=== PATIENT | male | born 1965 | race Caucasian/White ===

== ENCOUNTER 2019-05-30 13:21 | Inpatient (IN) | payer OTHER ==
[2019-05-30 15:44] VITALS: BMI 32.8
--- NOTE | 2019-05-30 17:32 | HP ---
CIWA Score Nausea/Vomitin-No Nausea/No Vomiting Muscle Tremors: 4-Moderate,w/Arms Extend Anxiety: 1-Mildly Anxious Agitation: 0-Normal Activity Paroxysmal Sweats: 3 (Increased facial moisture) Orientation: 0-Oriented Tacttile Disturbances: 0-None Auditory Disturbances: 0-None Visual Disturbances: 0-None Headache: 2-Mild CIWA-Ar Total Score: 10 - Admission Criteria OASAS Guidelines: Admission for Medically Managed Detox: Requires at least one of the followin. CIWA greater than 12 2. Seizures within the past 24 hours 3. Delirium tremens within the past 24 hours 4. Hallucinations within the past 24 hours 5. Acute intervention needed for co occurring medical disorder 6. Acute intervention needed for co occurring psychiatric disorder 7. Severe withdrawal that cannot be handled at a lower level of care (continued vomiting, continued diarrhea, abnormal vital signs) requiring intravenous medication and/or fluids 8. Patient presents the following: Acute intervention needed for co-occurring med or psych disorder (Blood pressure: 161/102 WENDY: 0.08) Admission Criteria Met: Admission criteria met Admission ROS [facility] Chief Complaint: "Here to get detoxed and rehabed - goal to stop everything eventually" Allergies/Adverse Reactions: Allergies Allergy/AdvReac Type Severity Reaction Status Date / Time No Known Allergies Allergy Verified 05/30/19 15:34 History of Present Illness: This is the first [facility] presentation for this 53 yo who presents with alcohol withdrawal symptoms and elevated blood pressure seeking detox. Denies hx seizures, overdose or blackouts. WENDY: 0.08 UTox: = THC/JOHN/FEN/MOP/MTD Alcohol use began at age 19. Currently drinks 6- 16 oz cans/day x 2 1/2 months. States this is a decrease. States gets shaky and sweaty when doesn't drink. Cocaine use began at age 26. Uses nasally. Marijuana use began at age 22. Heroin use began at age [age]. Currently on VIP MMTP. States started VIP in December 2018 but was on another program from 2014. Current methadone dose is 65 mg PO Daily. States today was LDM. States started relapsing w/ opiates 3 months ago. Uses 2 bags daily nasally. Has a Narcan kit at home. Nicotine use began at age 26. Currently smokes 1 cig/day. Has a current prescription for clonazepam and zolpidem but states doesn't take that often. PMHx: Asthma (no exacerbation x 11 months); HTN - last took meds 3 days ago. Discussed importance of compliance w/ HTN meds. MHHx: Intermittent insomnia. Denies thoughts of harming self or others SHx: Domiciled. Unemployed ([employer]); Denies legal issues Patient Name: Robert Ortiz Date: 1965 Address: [address], [place] [address] Sex: Male Rx Written Rx Dispensed Drug Quantity Days Supply Prescriber Name 05/15/2019 05/15/2019 clonazepam 1 mg tablet 60 30 Ariadne Hurt (TECHNICAL SUPPORT ASSOCIATE) 05/15/2019 05/15/2019 zolpidem tartrate 10 mg tablet 30 30 Ariadne Hurt ( TECHNICAL SUPPORT ASSOCIATE) 04/14/2019 04/14/2019 clonazepam 1 mg tablet 90 30 Ariadne Hurt (TECHNICAL SUPPORT ASSOCIATE) 04/14/2019 04/14/2019 zolpidem tartrate 10 mg tablet 30 30 Ariadne Hurt ( TECHNICAL SUPPORT ASSOCIATE) 03/15/2019 03/15/2019 zolpidem tartrate 10 mg tablet 30 30 Ariadne Hurt ( TECHNICAL SUPPORT ASSOCIATE) 03/15/2019 03/15/2019 clonazepam 1 mg tablet 90 30 Ariadne Hurt (TECHNICAL SUPPORT ASSOCIATE) Patient Name: Robert Ortiz Date: 1965 Address: [address] [place] [address] Sex: Male Rx Written Rx Dispensed Drug Quantity Days Supply Prescriber Name 02/17/2019 02/17/2019 zolpidem tartrate 10 mg tablet 30 30 Ariadne Hurt ( TECHNICAL SUPPORT ASSOCIATE) 02/17/2019 02/17/2019 clonazepam 1 mg tablet 90 30 Ariadne Hurt (TECHNICAL SUPPORT ASSOCIATE) 01/16/2019 01/16/2019 zolpidem tartrate 10 mg tablet 30 30 Ariadne Hurt ( TECHNICAL SUPPORT ASSOCIATE) 01/16/2019 01/16/2019 clonazepam 1 mg tablet 90 30 Ariadne Hurt (TECHNICAL SUPPORT ASSOCIATE) 12/16/2018 12/16/2018 zolpidem tartrate 10 mg tablet 30 30 Ariadne Hurt ( TECHNICAL SUPPORT ASSOCIATE) 12/16/2018 12/16/2018 clonazepam 1 mg tablet 90 30 Ariadne Hurt (TECHNICAL SUPPORT ASSOCIATE) 11/16/2018 11/16/2018 zolpidem tartrate 10 mg tablet 30 30 Ariadne Hurt Lynette ( TECHNICAL SUPPORT ASSOCIATE) 11/16/2018 11/16/2018 clonazepam 1 mg tablet 90 30 Ariadne Hurt Lynette (TECHNICAL SUPPORT ASSOCIATE) 10/19/2018 10/19/2018 zolpidem tartrate 10 mg tablet 30 30 Donavon Rincon MD 10/19/2018 10/19/2018 clonazepam 1 mg tablet 90 30 Donavon Rincon MD 09/14/2018 09/16/2018 zolpidem tartrate 10 mg tablet 30 30 Ariadne Hurt Lynette ( TECHNICAL SUPPORT ASSOCIATE) 09/14/2018 09/16/2018 clonazepam 1 mg tablet 90 30 Blu Ariadne Lynette (TECHNICAL SUPPORT ASSOCIATE) 08/19/2018 08/19/2018 clonazepam 1 mg tablet 90 30 Blu Ariadne Lynette (TECHNICAL SUPPORT ASSOCIATE) 08/19/2018 08/19/2018 zolpidem tartrate 10 mg tablet 30 30 Blu Ariadne Lynette ( TECHNICAL SUPPORT ASSOCIATE) 07/20/2018 07/20/2018 clonazepam 1 mg tablet 90 30 Blu Ariadne Lynette (TECHNICAL SUPPORT ASSOCIATE) 07/20/2018 07/20/2018 zolpidem tartrate 10 mg tablet 30 30 Ariadne Hurt Lynette ( TECHNICAL SUPPORT ASSOCIATE) 06/17/2018 06/29/2018 clonazepam 1 mg tablet 90 30 Ariadne Hutr Lynette (TECHNICAL SUPPORT ASSOCIATE) 06/17/2018 06/29/2018 zolpidem tartrate 10 mg tablet 30 30 Blu Ariadne Lynette ( TECHNICAL SUPPORT ASSOCIATE) Exam Limitations: No Limitations - Ebola screening Have you traveled outside of the country in the last 21 days: No Have you had contact with anyone from an Ebola affected area: No Have you been sick,other than usual withdrawal symptoms: No Do you have a fever: No - Review of Systems Constitutional: Diaphoresis, Weight Stable EENT: reports: Blurred Vision Respiratory: reports: No Symptoms reported Cardiac: reports: No Symptoms Reported GI: reports: No Symptoms Reported : reports: No Symptoms Reported Musculoskeletal: reports: No Symptoms Reported Integumentary: reports: No Symptoms Reported Neuro: reports: Headache (Mild temporal) Endocrine: reports: Increased Thirst Hematology: reports: No Symptoms Reported Psychiatric: reports: Judgement Intact, Mood/Affect Appropiate, Orientated x3, Anxious Patient History - PPD History Previous Implant?: Yes Documented Results: Negative w/o proof Implanted On Prior [facility] Admission?: No PPD to be Administered?: Yes - Smoking Cessation Smoking history: Current every day smoker Have you smoked in the past 12 months: Yes Aproximately how many cigarettes per day: 1 Hx Chewing Tobacco Use: No Initiated information on smoking cessation: Yes 'Breaking Loose' booklet given: 05/30/19 - Substance & Tx. History Hx Alcohol Use: Yes Hx Substance Use: Yes Substance Use Type: Alcohol, Cocaine, Heroin, Marijuana, Opiates Hx Substance Use Treatment: Yes (detox, rehab, Currently on MMTP) - Substances abused Heroin Substance route: Inhalation Frequency: Daily Amount used: 2 days Age of first use: 24 Date of last use: 05/29/19 Alcohol Substance route: Oral Frequency: Daily Amount used: 6 pk or more Age of first use: 19 Date of last use: 05/30/19 Cocaine Substance route: Inhalation Frequency: 1-3 times last 30 days Amount used: 1/2 gram -1 gram Age of first use: 26 Date of last use: 05/29/19 Marijuana/Hashish Substance route: Smoking Frequency: Daily Amount used: 1/2 oz Age of first use: 22 Date of last use: 05/29/19 Admission Physical Exam [facility] - Vital Signs Vital Signs: Vital Signs - 24 hr 05/30/19 15:35 Temperature 97.9 F Pulse Rate 71 Respiratory 18 Rate Blood Pressure 161/102 H - Physical General Appearance: Yes: Nourished, Mild Distress, Tremorous (Mod tremors felt) , Sweating (Increased facial moisture), Anxious HEENTM: Yes: EOMI, Hearing grossly Normal, Normocephalic, Normal Voice, HEMAL ( Pupils = 3 mm), Pharynx Normal Respiratory: Yes: Lungs Clear (Pulse Ox = 97 %), Normal Breath Sounds, No Respiratory Distress Neck: Yes: No masses,lesions,Nodules, Supple Breast: Yes: Breast Exam Deferred Cardiology: Yes: Regular Rhythm, Regular Rate, S1, S2 Abdominal: Yes: Non Tender, Soft, Increased Bowel Sounds Genitourinary: Yes: Within Normal Limits Back: Yes: Normal Inspection Musculoskeletal: Yes: full range of Motion, Gait Steady Extremities: Yes: Normal Capillary Refill (Peripheral pulses +), Tremors Neurological: Yes: fare register repairer II-XII NML intact, Fully Oriented, Alert, Motor Strength 5/5, Normal Response Integumentary: Yes: Normal Color, Warm, Diaphoresis (Increased facial moisture) Lymphatic: Yes: Within Normal Limits - Diagnostic (1) Alcohol dependence with withdrawal, uncomplicated Current Visit: Yes Status: Acute (2) Cocaine dependence, uncomplicated Current Visit: Yes Status: Chronic (3) Cannabis dependence, uncomplicated Current Visit: Yes Status: Chronic (4) Nicotine abuse Current Visit: Yes Status: Chronic Comment: Down to one cigarette/day (5) History of asthma Current Visit: No Status: Chronic (6) Methadone maintenance therapy patient Current Visit: Yes Status: Chronic (7) Opioid use disorder Current Visit: Yes Status: Chronic Comment: Continues to use illicit opiates despite being on MMT (8) Essential (primary) hypertension Current Visit: Yes Status: Chronic Cleared for Admission S - Detox or Rehab [facility] Level of Care: Medically Managed Detox Regimen/Protocol: Valium Claeared for Rehab Admission: No Breathalyzer - Breathalyzer Breathalyzer: 0.08 Urine Drug Screen - Test Device Lot number: [id number] Expiration date: 01/24/21 - Control Is test valid?: Yes - Results Drug screen NEGATIVE: No Urine drug screen results: THC-Marijuana, JOHN-Cocaine, FEN-Fentanyl, MTD- Methadone Inpatient Rehab Admission - Rehab Decision to Admit Inpatient rehab admission?: No
[2019-05-30] MEDS ORDERED: ACETAMINOPHEN 325 MG TABLET (FP) PO PRN (17:56)
[2019-05-30] MEDS ORDERED: IBUPROFEN 400 MG TABLET (FP) PO PRN (17:56)
[2019-05-30] MEDS ORDERED: MAGNESIUM HYDROX 2400MG/30ML ORAL SUSPENSION 30 ML CUP PO PRN (17:56)
[2019-05-30] MEDS ORDERED: MAG HYDROX/AL HYDROX/SIMETH 30 ML UNIT-DOSE CUP PO PRN (17:56)
[2019-05-30] MEDS ORDERED: METHOCARBAMOL 500 MG TABLET PO PRN (17:56)
[2019-05-30] MEDS ORDERED: MENTHOL/PHENOL 1 EACH UD MM PRN (17:56)
[2019-05-30] MEDS ORDERED: BISMUTH SUBSALICYLATE 524 MG/30 ML UD PO PRN (17:56)
[2019-05-30] MEDS ORDERED: MAGNESIUM CITRATE 300 ML BOTTLE PO PRN (17:56)
[2019-05-30] MEDS ORDERED: diazePAM 5 MG TABLET PO ONE (18:15)
[2019-05-30] MEDS ORDERED: cloNIDine HCL 0.1 MG TABLET PO ONE (18:15)
[2019-05-30] MEDS: THIAMINE HCL 100 MG TABLET (FP) PO SCH (22:11)
[2019-05-30] MEDS: diazePAM 5 MG TABLET PO SCH (22:11)
[2019-05-30] MEDS: MELATONIN 5 MG TABLETS PO PRN (22:12)
[2019-05-31] MEDS ORDERED: METHADONE HCL 10 MG TABLET ONE (04:06)
[2019-05-31] MEDS ORDERED: METHADONE HCL 5 MG TABLET ONE (04:07)
[2019-05-31] MEDS ORDERED: METHADONE HCL 40 MG DISPERSABLE TABLET ONE (04:07)
[2019-05-31] MEDS: diazePAM 5 MG TABLET PO SCH ×3 (05:59→22:11)
[2019-05-31] MEDS: METHADONE 40 MG, METHADONE 20 MG, METHADONE 5 MG PO SCH (05:59)
[2019-05-31] MEDS ORDERED: METHADONE HCL 10 MG TABLET PO SCH (06:00)
[2019-05-31] MEDS: PRENATAL VITAMINS W/ FOLIC ACID TABLET (FP) PO SCH (10:08)
[2019-05-31] MEDS: LISINOPRIL 10 MG TABLET (FP) PO SCH (10:08)
[2019-05-31 10:35] LABS: HEMATOCRIT 38.8 % (35.4-49); HEMOGLOBIN 12.6 GM/dL (11.7-16.9); MCHC 32.5 g/dl (32.0-35.9); MEAN PLT VOLUME 9.9 fl (7.5-11.1); PLATELET COUNT 270 K/MM3 (134-434); RBC 4.68 M/mm3 (4.00-5.60); RDW 15.4 % (11.9-15.9); WHITE BLOOD COUNT 5.7 K/mm3 (4.0-10.0)
[2019-05-31 10:36] LABS: BILIRUBIN,TOTAL 0.3 mg/dL (0.2-1); BLOOD UREA NITROGEN 11.4 mg/dL (7-18); CREATININE 1.1 mg/dL (0.55-1.3); POTASSIUM 4.3 mmol/L (3.5-5.1); TOT PROT 7.4 g/dl (6.4-8.2)
--- NOTE | 2019-05-31 10:36 | EKG ---
Test Reason : Blood Pressure : / mmHG Vent. Rate : 071 BPM Atrial Rate : 071 BPM P-R Int : 158 ms QRS Dur : 098 ms QT Int : 398 ms P-R-T Axes : 057 -23 000 degrees QTc Int : 432 ms NORMAL SINUS RHYTHM NORMAL ECG NO PREVIOUS ECGS AVAILABLE Confirmed by BETSEY HENRIQUEZ, JEFF ([id number]) on 05/31/2019 10:36:16 AM Referred By: Confirmed By:JEFF LEGGETT MD
--- NOTE | 2019-05-31 10:54 | PN ---
S CIWA - CIWA Score Nausea/Vomitin-Mild Nausea/No Vomiting Muscle Tremors: 3 Anxiety: 4-Mod. Anxious/Guarded Agitation: 2 Paroxysmal Sweats: 2 Orientation: 0-Oriented Tacttile Disturbances: 0-None Auditory Disturbances: 0-None Visual Disturbances: 0-None Headache: 1-Very Mild CIWA-Ar Total Score: 13 S Progress Note (SOAP) Subjective: 53 years old male admitted on 05/30/19 for alcohol withdrawal sx management treated with valium detox regimen 14 years sobriety with depression taking methadone 65 mg po daily ambulating on hallway social with peers in day room discuss aftercare prefers in patient rehab Objective: 05/31/19 10:53 Vital Signs Temperature 98.1 F 05/31/19 09:18 Pulse Rate 78 05/31/19 09:18 Respiratory Rate 16 05/31/19 09:18 Blood Pressure 134/86 05/31/19 09:18 O2 Sat by Pulse Oximetry (%) Laboratory Last Values WBC 5.7 K/mm3 (4.0-10.0) 05/31/19 08:00 RBC 4.68 M/mm3 (4.00-5.60) 05/31/19 08:00 Hgb 12.6 GM/dL (11.7-16.9) 05/31/19 08:00 Hct 38.8 % (35.4-49) 05/31/19 08:00 MCV 83.0 fl (80-96) 05/31/19 08:00 MCH 27.0 pg (25.7-33.7) 05/31/19 08:00 MCHC 32.5 g/dl (32.0-35.9) 05/31/19 08:00 RDW 15.4 % (11.9-15.9) 05/31/19 08:00 Plt Count 270 K/MM3 (134-434) 05/31/19 08:00 MPV 9.9 fl (7.5-11.1) 05/31/19 08:00 Sodium 137 mmol/L (136-145) 05/31/19 08:00 Potassium 4.3 mmol/L (3.5-5.1) 05/31/19 08:00 Chloride 102 mmol/L (98-107) 05/31/19 08:00 Carbon Dioxide 30 mmol/L (21-32) 05/31/19 08:00 Anion Gap 5 MMOL/L (8-16) L 05/31/19 08:00 BUN 11.4 mg/dL (7-18) 05/31/19 08:00 Creatinine 1.1 mg/dL (0.55-1.3) 05/31/19 08:00 Est GFR (CKD-EPI)AfAm 88.36 05/31/19 08:00 Est GFR (CKD-EPI)NonAf 76.24 05/31/19 08:00 Random Glucose 72 mg/dL (74-106) L 05/31/19 08:00 Calcium 9.0 mg/dL (8.5-10.1) 05/31/19 08:00 Total Bilirubin 0.3 mg/dL (0.2-1) 05/31/19 08:00 AST 11 U/L (15-37) L 05/31/19 08:00 ALT 15 U/L (13-61) 05/31/19 08:00 Alkaline Phosphatase 103 U/L (45-117) 05/31/19 08:00 Total Protein 7.4 g/dl (6.4-8.2) 05/31/19 08:00 Albumin 4.0 g/dl (3.4-5.0) 05/31/19 08:00 lab noted Assessment: 05/31/19 10:54 alcohol withdrawal sx Plan: continue valium detox regimen
[2019-05-31] MEDS: THIAMINE HCL 100 MG TABLET (FP) PO SCH (22:11)
[2019-05-31] MEDS: MELATONIN 5 MG TABLETS PO PRN (22:11)
[2019-06-01] MEDS ORDERED: METHADONE HCL 10 MG TABLET ONE (04:27)
[2019-06-01] MEDS ORDERED: METHADONE HCL 40 MG DISPERSABLE TABLET ONE (04:28)
[2019-06-01] MEDS ORDERED: METHADONE HCL 5 MG TABLET ONE (04:28)
[2019-06-01] MEDS: diazePAM 5 MG TABLET PO SCH ×2 (05:29→17:02)
[2019-06-01] MEDS: METHADONE 40 MG, METHADONE 20 MG, METHADONE 5 MG PO SCH (05:29)
[2019-06-01] MEDS: PRENATAL VITAMINS W/ FOLIC ACID TABLET (FP) PO SCH (10:23)
[2019-06-01] MEDS: LISINOPRIL 10 MG TABLET (FP) PO SCH (10:23)
[2019-06-01] MEDS: diazePAM 5 MG TABLET PO PRN ×2 (10:25→21:48)
--- NOTE | 2019-06-01 12:08 | PN ---
[facility] CIWA - CIWA Score Nausea/Vomitin-No Nausea/No Vomiting Muscle Tremors: 2 Anxiety: 3 Agitation: 2 Paroxysmal Sweats: 1-Minimal Palms Moist Orientation: 0-Oriented Tacttile Disturbances: 0-None Auditory Disturbances: 0-None Visual Disturbances: 0-None Headache: 0-None Present CIWA-Ar Total Score: 8 S Progress Note (SOAP) Subjective: 53 years old male admitted on 05/30/19 for alcohol withdrawal sx management treated with valium detox regimen feeling better today ambulating on hallway discuss aftercare with staff Objective: 06/01/19 12:08 Vital Signs Temperature 98.1 F 06/01/19 09:15 Pulse Rate 74 06/01/19 09:15 Respiratory Rate 18 06/01/19 09:15 Blood Pressure 119/82 06/01/19 09:15 O2 Sat by Pulse Oximetry (%) Laboratory Last Values WBC 5.7 K/mm3 (4.0-10.0) 05/31/19 08:00 RBC 4.68 M/mm3 (4.00-5.60) 05/31/19 08:00 Hgb 12.6 GM/dL (11.7-16.9) 05/31/19 08:00 Hct 38.8 % (35.4-49) 05/31/19 08:00 MCV 83.0 fl (80-96) 05/31/19 08:00 MCH 27.0 pg (25.7-33.7) 05/31/19 08:00 MCHC 32.5 g/dl (32.0-35.9) 05/31/19 08:00 RDW 15.4 % (11.9-15.9) 05/31/19 08:00 Plt Count 270 K/MM3 (134-434) 05/31/19 08:00 MPV 9.9 fl (7.5-11.1) 05/31/19 08:00 Sodium 137 mmol/L (136-145) 05/31/19 08:00 Potassium 4.3 mmol/L (3.5-5.1) 05/31/19 08:00 Chloride 102 mmol/L (98-107) 05/31/19 08:00 Carbon Dioxide 30 mmol/L (21-32) 05/31/19 08:00 Anion Gap 5 MMOL/L (8-16) L 05/31/19 08:00 BUN 11.4 mg/dL (7-18) 05/31/19 08:00 Creatinine 1.1 mg/dL (0.55-1.3) 05/31/19 08:00 Est GFR (CKD-EPI)AfAm 88.36 05/31/19 08:00 Est GFR (CKD-EPI)NonAf 76.24 05/31/19 08:00 Random Glucose 72 mg/dL (74-106) L 05/31/19 08:00 Calcium 9.0 mg/dL (8.5-10.1) 05/31/19 08:00 Total Bilirubin 0.3 mg/dL (0.2-1) 05/31/19 08:00 AST 11 U/L (15-37) L 05/31/19 08:00 ALT 15 U/L (13-61) 05/31/19 08:00 Alkaline Phosphatase 103 U/L (45-117) 05/31/19 08:00 Total Protein 7.4 g/dl (6.4-8.2) 05/31/19 08:00 Albumin 4.0 g/dl (3.4-5.0) 05/31/19 08:00 RPR Titer Nonreactive (NONREACTIVE) 05/31/19 08:00 lab noted Assessment: 06/01/19 12:08 alcohol withdrawal sx Plan: valium detox regimen
[2019-06-01] MEDS: THIAMINE HCL 100 MG TABLET (FP) PO SCH (21:46)
[2019-06-01] MEDS: MELATONIN 5 MG TABLETS PO PRN (21:48)
[2019-06-02] MEDS ORDERED: METHADONE HCL 40 MG DISPERSABLE TABLET ONE (04:13)
[2019-06-02] MEDS ORDERED: METHADONE HCL 10 MG TABLET ONE (04:13)
[2019-06-02] MEDS ORDERED: METHADONE HCL 5 MG TABLET ONE (04:14)
[2019-06-02] MEDS: METHADONE 40 MG, METHADONE 20 MG, METHADONE 5 MG PO SCH (05:46)
[2019-06-02] MEDS ORDERED: diazePAM 5 MG TABLET PO ONE (06:00)
--- NOTE | 2019-06-02 09:43 | PN ---
S CIWA - CIWA Score Nausea/Vomitin-No Nausea/No Vomiting Muscle Tremors: None Anxiety: 3 Agitation: 2 Paroxysmal Sweats: No Perspiration Orientation: 0-Oriented Tacttile Disturbances: 1-Very Mild Itch/Numbness Auditory Disturbances: 0-None Visual Disturbances: 0-None Headache: 0-None Present CIWA-Ar Total Score: 6 [facility] Progress Note (SOAP) Subjective: c/o of feeling anxious and interrupted sleep Objective: 06/02/19 16:59 Vital Signs Temperature 98.1 F 06/02/19 13:25 Pulse Rate 71 06/02/19 13:25 Respiratory Rate 18 06/02/19 13:25 Blood Pressure 130/88 06/02/19 13:25 O2 Sat by Pulse Oximetry (%) Laboratory Last Values WBC 5.7 K/mm3 (4.0-10.0) 05/31/19 08:00 RBC 4.68 M/mm3 (4.00-5.60) 05/31/19 08:00 Hgb 12.6 GM/dL (11.7-16.9) 05/31/19 08:00 Hct 38.8 % (35.4-49) 05/31/19 08:00 MCV 83.0 fl (80-96) 05/31/19 08:00 MCH 27.0 pg (25.7-33.7) 05/31/19 08:00 MCHC 32.5 g/dl (32.0-35.9) 05/31/19 08:00 RDW 15.4 % (11.9-15.9) 05/31/19 08:00 Plt Count 270 K/MM3 (134-434) 05/31/19 08:00 MPV 9.9 fl (7.5-11.1) 05/31/19 08:00 Sodium 137 mmol/L (136-145) 05/31/19 08:00 Potassium 4.3 mmol/L (3.5-5.1) 05/31/19 08:00 Chloride 102 mmol/L (98-107) 05/31/19 08:00 Carbon Dioxide 30 mmol/L (21-32) 05/31/19 08:00 Anion Gap 5 MMOL/L (8-16) L 05/31/19 08:00 BUN 11.4 mg/dL (7-18) 05/31/19 08:00 Creatinine 1.1 mg/dL (0.55-1.3) 05/31/19 08:00 Est GFR (CKD-EPI)AfAm 88.36 05/31/19 08:00 Est GFR (CKD-EPI)NonAf 76.24 05/31/19 08:00 Random Glucose 72 mg/dL (74-106) L 05/31/19 08:00 Calcium 9.0 mg/dL (8.5-10.1) 05/31/19 08:00 Total Bilirubin 0.3 mg/dL (0.2-1) 05/31/19 08:00 AST 11 U/L (15-37) L 05/31/19 08:00 ALT 15 U/L (13-61) 05/31/19 08:00 Alkaline Phosphatase 103 U/L (45-117) 05/31/19 08:00 Total Protein 7.4 g/dl (6.4-8.2) 05/31/19 08:00 Albumin 4.0 g/dl (3.4-5.0) 05/31/19 08:00 RPR Titer Nonreactive (NONREACTIVE) 05/31/19 08:00 Assessment: 06/02/19 16:59 Patient Aox3 anxious full ROM no gait disturbance withdrawal sx increase po fluids continue detox d/c in AM
[2019-06-02] MEDS: LISINOPRIL 10 MG TABLET (FP) PO SCH (10:50)
[2019-06-02] MEDS: PRENATAL VITAMINS W/ FOLIC ACID TABLET (FP) PO SCH (10:50)
[2019-06-02] MEDS: diazePAM 5 MG TABLET PO PRN ×2 (10:53→17:22)
[2019-06-02] MEDS: HYDROCORTISONE 2.5% TOPICAL CREAM 30 GM TUBE PR SCH (14:19)
[2019-06-02] MEDS: MELATONIN 5 MG TABLETS PO PRN (22:03)
[2019-06-02] MEDS: THIAMINE HCL 100 MG TABLET (FP) PO SCH (22:03)
[2019-06-03] MEDS ORDERED: METHADONE HCL 10 MG TABLET ONE (06:17)
[2019-06-03] MEDS ORDERED: METHADONE HCL 40 MG DISPERSABLE TABLET ONE (06:18)
[2019-06-03] MEDS ORDERED: METHADONE HCL 5 MG TABLET ONE (06:18)
[2019-06-03] MEDS: METHADONE 40 MG, METHADONE 20 MG, METHADONE 5 MG PO SCH (06:20)
[2019-06-03] MEDS ORDERED: HYDROCHLOROTHIAZIDE 12.5 MG CAPSULE (FP) PO ONE ×2 (10:00→23:00)
[2019-06-03] MEDS: LISINOPRIL 10 MG TABLET (FP) PO SCH (10:12)
[2019-06-03] MEDS: PRENATAL VITAMINS W/ FOLIC ACID TABLET (FP) PO SCH (10:13)
[2019-06-03] MEDS: HYDROCORTISONE 2.5% TOPICAL CREAM 30 GM TUBE PR SCH (11:28)
--- NOTE | 2019-06-03 13:47 | PN ---
[facility] Progress Note Note: Pt completed his detox protocol on 06/02/2019 in AM. Pt is accepted to [facility] on 06/05/2019. [facility] does not accept pt's on weekend. Will keep pt till wednesday for relapse prevention. Case discussed with Omaira Cabrales, Clinical suppervisor. Pt is alert and oriented x3 and in no respiratory distress.
[2019-06-03] MEDS: hydrOXYzine PAMOATE 25 MG CAPSULE (FP) PO PRN ×2 (18:09→22:18)
[2019-06-03] MEDS: NICOTINE POLACRILEX 2 MG GUM BUC PRN (18:11)
[2019-06-03] MEDS: ACETAMINOPHEN 325 MG TABLET (FP) PO PRN (18:56)
--- NOTE | 2019-06-03 22:15 | PN ---
[facility] Progress Note Note: c/o feet swelling x 2 days. States swelling decreases when legs are elevated. Denies CP/SOB/calf pain.. BLE 1+ pitting edema noted (L) > (R). Pedal pulses(+); Cap refill < 3 sec. No increased warmth/tenderness of calf/Neg Wlai's. Lungs CTA. Pulse Ox = 98% Chronic increased abdominal adiposity. 05/30/19: EKG reviewed. CMP Sodium 137 mmol/L (136-145) 05/31/19 08:00 Potassium 4.3 mmol/L (3.5-5.1) 05/31/19 08:00 Chloride 102 mmol/L (98-107) 05/31/19 08:00 Carbon Dioxide 30 mmol/L (21-32) 05/31/19 08:00 Anion Gap 5 MMOL/L (8-16) L 05/31/19 08:00 BUN 11.4 mg/dL (7-18) 05/31/19 08:00 Creatinine 1.1 mg/dL (0.55-1.3) 05/31/19 08:00 Est GFR (CKD-EPI)AfAm 88.36 05/31/19 08:00 Est GFR (CKD-EPI)NonAf 76.24 05/31/19 08:00 Random Glucose 72 mg/dL (74-106) L 05/31/19 08:00 Calcium 9.0 mg/dL (8.5-10.1) 05/31/19 08:00 Total Bilirubin 0.3 mg/dL (0.2-1) 05/31/19 08:00 AST 11 U/L (15-37) L 05/31/19 08:00 ALT 15 U/L (13-61) 05/31/19 08:00 Alkaline Phosphatase 103 U/L (45-117) 05/31/19 08:00 Total Protein 7.4 g/dl (6.4-8.2) 05/31/19 08:00 Albumin 4.0 g/dl (3.4-5.0) 05/31/19 08:00 Labs reviewed. Vital Signs 06/03/19 06/03/19 06/03/19 14:00 17:48 21:48 Temperature 98.1 F 99.2 F 98.2 F Pulse Rate 76 74 82 Respiratory 20 18 18 Rate Blood Pressure 126/88 131/92 144/95 06/04/19 00:30 Temperature Pulse Rate Respiratory 18 Rate Blood Pressure Plan: 12.5 mg HCTZ BID x 2 doses. Discussed low Na foods and encouraged compliance Encouraged elevation of feet.
[2019-06-03] MEDS: THIAMINE HCL 100 MG TABLET (FP) PO SCH (22:17)
[2019-06-03] MEDS: MELATONIN 5 MG TABLETS PO PRN (22:17)
[2019-06-04] MEDS ORDERED: METHADONE HCL 40 MG DISPERSABLE TABLET ONE (04:34)
[2019-06-04] MEDS ORDERED: METHADONE HCL 10 MG TABLET ONE (04:34)
[2019-06-04] MEDS ORDERED: METHADONE HCL 5 MG TABLET ONE (04:35)
[2019-06-04] MEDS: METHADONE 40 MG, METHADONE 20 MG, METHADONE 5 MG PO SCH (05:23)
[2019-06-04] MEDS ORDERED: HYDROCHLOROTHIAZIDE 12.5 MG CAPSULE (FP) PO ONE (10:00)
[2019-06-04] MEDS: LISINOPRIL 10 MG TABLET (FP) PO SCH (10:08)
[2019-06-04] MEDS: HYDROCORTISONE 2.5% TOPICAL CREAM 30 GM TUBE PR SCH (10:08)
[2019-06-04] MEDS: PRENATAL VITAMINS W/ FOLIC ACID TABLET (FP) PO SCH (10:08)
[2019-06-04] MEDS: NICOTINE POLACRILEX 2 MG GUM BUC PRN (11:08)
--- NOTE | 2019-06-04 13:28 | PN ---
[facility] CIWA - CIWA Score Nausea/Vomitin-No Nausea/No Vomiting Muscle Tremors: 1-None Visible, but [place] Anxiety: 1-Mildly Anxious Agitation: 0-Normal Activity Paroxysmal Sweats: No Perspiration Orientation: 0-Oriented Tacttile Disturbances: 0-None Auditory Disturbances: 0-None Visual Disturbances: 0-None Headache: 0-None Present CIWA-Ar Total Score: 2 S Progress Note (SOAP) Subjective: 54 years old male admitted on 05/30/19 for alcohol withdrawal sx management treated with valium detox regimen edematous of both ankles hyperpigmentation noted on both legs above the ankle strong recommend the patient elevating both legs as long as possible discuss alcohol related vascular disease Objective: 06/04/19 13:27 Vital Signs Temperature 97.3 F L 06/04/19 13:08 Pulse Rate 80 06/04/19 13:08 Respiratory Rate 18 06/04/19 13:08 Blood Pressure 109/74 06/04/19 13:08 O2 Sat by Pulse Oximetry (%) Laboratory Last Values WBC 5.7 K/mm3 (4.0-10.0) 05/31/19 08:00 RBC 4.68 M/mm3 (4.00-5.60) 05/31/19 08:00 Hgb 12.6 GM/dL (11.7-16.9) 05/31/19 08:00 Hct 38.8 % (35.4-49) 05/31/19 08:00 MCV 83.0 fl (80-96) 05/31/19 08:00 MCH 27.0 pg (25.7-33.7) 05/31/19 08:00 MCHC 32.5 g/dl (32.0-35.9) 05/31/19 08:00 RDW 15.4 % (11.9-15.9) 05/31/19 08:00 Plt Count 270 K/MM3 (134-434) 05/31/19 08:00 MPV 9.9 fl (7.5-11.1) 05/31/19 08:00 Sodium 137 mmol/L (136-145) 05/31/19 08:00 Potassium 4.3 mmol/L (3.5-5.1) 05/31/19 08:00 Chloride 102 mmol/L (98-107) 05/31/19 08:00 Carbon Dioxide 30 mmol/L (21-32) 05/31/19 08:00 Anion Gap 5 MMOL/L (8-16) L 05/31/19 08:00 BUN 11.4 mg/dL (7-18) 05/31/19 08:00 Creatinine 1.1 mg/dL (0.55-1.3) 05/31/19 08:00 Est GFR (CKD-EPI)AfAm 88.36 05/31/19 08:00 Est GFR (CKD-EPI)NonAf 76.24 05/31/19 08:00 Random Glucose 72 mg/dL (74-106) L 05/31/19 08:00 Calcium 9.0 mg/dL (8.5-10.1) 05/31/19 08:00 Total Bilirubin 0.3 mg/dL (0.2-1) 05/31/19 08:00 AST 11 U/L (15-37) L 05/31/19 08:00 ALT 15 U/L (13-61) 05/31/19 08:00 Alkaline Phosphatase 103 U/L (45-117) 05/31/19 08:00 Total Protein 7.4 g/dl (6.4-8.2) 05/31/19 08:00 Albumin 4.0 g/dl (3.4-5.0) 05/31/19 08:00 RPR Titer Nonreactive (NONREACTIVE) 05/31/19 08:00 lab noted Assessment: 06/04/19 13:28 alcohol withdrawal sx Plan: medically observation
[2019-06-04] MEDS: ACETAMINOPHEN 325 MG TABLET (FP) PO PRN (22:21)
[2019-06-04] MEDS: MELATONIN 5 MG TABLETS PO PRN (22:21)
[2019-06-04] MEDS: THIAMINE HCL 100 MG TABLET (FP) PO SCH (22:21)
[2019-06-05] MEDS ORDERED: METHADONE HCL 40 MG DISPERSABLE TABLET ONE (04:25)
[2019-06-05] MEDS ORDERED: METHADONE HCL 5 MG TABLET ONE (04:25)
[2019-06-05] MEDS ORDERED: METHADONE HCL 10 MG TABLET ONE (04:25)
[2019-06-05] MEDS: METHADONE 40 MG, METHADONE 20 MG, METHADONE 5 MG PO SCH (05:37)
[2019-06-05] MEDS: ACETAMINOPHEN 325 MG TABLET (FP) PO PRN (06:09)
[2019-06-05 09:18] VITALS: BP 121/82; PULSE 92; TEMP 97.6
--- NOTE | 2019-06-05 13:04 | DS ---
[facility] Detox Discharge Summary Admission Date: 05/30/19 Discharge Date: 06/05/19 - History Present History: Alcohol Dependence Additional Comments: 54 years old male admitted on 05/30/19 for alcohol withdrawal sx management treated with valium detox regimen patient tolerated well alert oriented x 2 extremities full range of motion ambulating steady gait denies pain while ambulating on the floor cardiac s1s2 regular rate rhythm respiratory clear lung bilaterally on auscultation Pertinent Past History: patient agrees returning to methadone program for ankles edema and bringing in lab report for follow up patient is willing to go to [facility] follow up - Physical Exam Results Vital Signs: Vital Signs Temperature 97.6 F 06/05/19 09:17 Pulse Rate 92 H 06/05/19 09:17 Respiratory Rate 18 06/05/19 09:17 Blood Pressure 121/82 06/05/19 09:17 O2 Sat by Pulse Oximetry (%) Pertinent Admission Physical Exam Findings: alcohol withdrawal sx Laboratory Last Values WBC 5.7 K/mm3 (4.0-10.0) 05/31/19 08:00 RBC 4.68 M/mm3 (4.00-5.60) 05/31/19 08:00 Hgb 12.6 GM/dL (11.7-16.9) 05/31/19 08:00 Hct 38.8 % (35.4-49) 05/31/19 08:00 MCV 83.0 fl (80-96) 05/31/19 08:00 MCH 27.0 pg (25.7-33.7) 05/31/19 08:00 MCHC 32.5 g/dl (32.0-35.9) 05/31/19 08:00 RDW 15.4 % (11.9-15.9) 05/31/19 08:00 Plt Count 270 K/MM3 (134-434) 05/31/19 08:00 MPV 9.9 fl (7.5-11.1) 05/31/19 08:00 Sodium 137 mmol/L (136-145) 05/31/19 08:00 Potassium 4.3 mmol/L (3.5-5.1) 05/31/19 08:00 Chloride 102 mmol/L (98-107) 05/31/19 08:00 Carbon Dioxide 30 mmol/L (21-32) 05/31/19 08:00 Anion Gap 5 MMOL/L (8-16) L 05/31/19 08:00 BUN 11.4 mg/dL (7-18) 05/31/19 08:00 Creatinine 1.1 mg/dL (0.55-1.3) 05/31/19 08:00 Est GFR (CKD-EPI)AfAm 88.36 05/31/19 08:00 Est GFR (CKD-EPI)NonAf 76.24 05/31/19 08:00 Random Glucose 72 mg/dL (74-106) L 05/31/19 08:00 Calcium 9.0 mg/dL (8.5-10.1) 05/31/19 08:00 Total Bilirubin 0.3 mg/dL (0.2-1) 05/31/19 08:00 AST 11 U/L (15-37) L 05/31/19 08:00 ALT 15 U/L (13-61) 05/31/19 08:00 Alkaline Phosphatase 103 U/L (45-117) 05/31/19 08:00 Total Protein 7.4 g/dl (6.4-8.2) 05/31/19 08:00 Albumin 4.0 g/dl (3.4-5.0) 05/31/19 08:00 RPR Titer Nonreactive (NONREACTIVE) 05/31/19 08:00 lab noted - Treatment Hospital Course: Detox Protocol Followed, Detoxed Safely, Responded well, Discharged Condition Good, Rehab Referral Accepted Patient has Accepted a Rehab Referral to: [facility] - Medication Discharge Medications: Ambulatory Orders Lisinopril [Prinivil] 10 mg PO DAILY 05/30/19 - Diagnosis (1) Edema of both ankles Status: Chronic (2) Alcohol dependence with withdrawal, uncomplicated Status: Acute (3) Essential (primary) hypertension Status: Chronic (4) Methadone maintenance therapy patient Status: Chronic (5) Nicotine abuse Status: Acute - AMA Did Patient Leave Against Medical Advice: No CIWA Score - CIWA Score Nausea/Vomitin-No Nausea/No Vomiting Muscle Tremors: 1-None Visible, but [place] Anxiety: 0-No Anxiety, at Ease Agitation: 0-Normal Activity Paroxysmal Sweats: No Perspiration Orientation: 0-Oriented Tacttile Disturbances: 0-None Auditory Disturbances: 0-None Visual Disturbances: 0-None Headache: 0-None Present CIWA-Ar Total Score: 1
== END 2019-06-05 08:39 | disposition home or self-care (01) | DRG 897 ==
LOC: YASAS 13:21 → Y3N 18:02
PROVIDERS: ADMIT Allergy & Immunology; ATTEND Allergy & Immunology
PROC: HZ2ZZZZ Detoxification Services for Substance Abuse Treatment (ICD-10-PCS; principal; 2019-05-30)
DX: F10.230 Alcohol dependence with withdrawal, uncomplicated (principal); F11.20 Opioid dependence, uncomplicated; F14.20 Cocaine dependence, uncomplicated; F12.20 Cannabis dependence, uncomplicated; F17.210 Nicotine dependence, cigarettes, uncomplicated; I10 Essential (primary) hypertension; G47.00 Insomnia, unspecified; L81.9 Disorder of pigmentation, unspecified; M25.473 Effusion, unspecified ankle; Z87.09 Personal history of other diseases of the respiratory system
CPT/HCPCS: 36415; 80053; 85027; 86593; 93005; 93010; J0735

== ENCOUNTER 2021-12-24 11:00 | Inpatient (IN) | payer OTHER ==
[2021-12-24 11:57] VITALS: BMI 33.7
[2021-12-24] MEDS ORDERED: NALOXONE HCL (KLOXXADO) 8 MG SPRAY NS PRN (12:20)
[2021-12-24] MEDS ORDERED: BENZOCAINE/MENTHOL (CHLORASEPTIC ) LOZENGE MM PRN (12:20)
[2021-12-24] MEDS ORDERED: LOPERAMIDE HCL 2 MG CAPSULE PO PRN (12:20)
[2021-12-24] MEDS ORDERED: BISMUTH SUBSALICYLATE 262 MG/15 ML BTL PO PRN (12:20)
[2021-12-24] MEDS ORDERED: DICYCLOMINE HCL 10 MG CAPSULE PO PRN (12:20)
[2021-12-24] MEDS ORDERED: IBUPROFEN 600 MG TABLET (FP) PO PRN (12:20)
[2021-12-24] MEDS ORDERED: MAG HYDROX/AL HYDROX/SIMETH 30 ML UNIT-DOSE CUP PO PRN (12:20)
[2021-12-24] MEDS ORDERED: IBUPROFEN 400 MG TABLET (FP) PO PRN (12:20)
[2021-12-24] MEDS ORDERED: METHOCARBAMOL 500 MG TABLET PO PRN (12:20)
[2021-12-24] MEDS ORDERED: ONDANSETRON *ODT* 4 MG TABLET SL PRN (12:20)
[2021-12-24] MEDS ORDERED: diazePAM 5 MG TABLET PO PRN (12:20)
[2021-12-24] MEDS ORDERED: MAGNESIUM HYDROX 2400MG/30ML ORAL SUSPENSION 30 ML CUP PO PRN (12:20)
[2021-12-24] MEDS ORDERED: ACETAMINOPHEN 325 MG TABLET (FP) PO PRN ×2 (12:20)
[2021-12-24] MEDS ORDERED: MAGNESIUM CITRATE 300 ML BOTTLE PO PRN (12:20)
[2021-12-24] MEDS ORDERED: hydrOXYzine PAMOATE 25 MG CAPSULE (FP) PO ONE (13:32)
[2021-12-24] MEDS ORDERED: LISINOPRIL 10 MG TABLET ONE (13:33)
[2021-12-24] MEDS ORDERED: NICOTINE 7 MG/24 HOURS TOPICAL PATCH TD ONE (13:33)
[2021-12-24] MEDS: LISINOPRIL 10 MG TABLET PO SCH (13:35)
[2021-12-24] MEDS: hydrOXYzine PAMOATE 25 MG CAPSULE (FP) PO SCH ×3 (13:35→22:29)
[2021-12-24] MEDS: NICOTINE 7 MG/24 HOURS TOPICAL PATCH TD SCH (13:35)
[2021-12-24] MEDS: PRENATAL VITAMINS W/ FOLIC ACID TABLET (FP) PO SCH (14:00)
[2021-12-24 15:21] LABS: HEMATOCRIT 33.8 % (35.4-49); HEMOGLOBIN 10.6 GM/dL (11.7-16.9); MCH 22.9 pg (25.7-33.7); MCHC 31.5 g/dl (32.0-35.9); MEAN CELL VOLUME 72.9 fl (80-96); PLATELET COUNT 246 10^3/uL (134-434); RBC 4.64 M/mm3 (4.00-5.60); RDW 17.6 % (11.9-15.9)
[2021-12-24 15:27] LABS: CALCIUM 8.9 mg/dL (8.5-10.1)
[2021-12-24 15:28] LABS: ALBUMIN 3.7 g/dl (3.4-5.0); BLOOD UREA NITROGEN 13.6 mg/dL (7-18)
[2021-12-24 15:31] LABS: CREATININE 1.1 mg/dL (0.55-1.3)
[2021-12-24 15:33] LABS: BILIRUBIN,TOTAL 0.6 mg/dL (0.2-1); TOT PROT 7.4 g/dl (6.4-8.2)
[2021-12-24] MEDS: diazePAM 5 MG TABLET PO SCH ×2 (18:07→22:30)
[2021-12-24] MEDS: MELATONIN 5 MG TABLETS PO SCH (22:29)
[2021-12-24] MEDS: THIAMINE HCL 100 MG TABLET (FP) PO SCH (22:29)
[2021-12-25] MEDS: hydrOXYzine PAMOATE 25 MG CAPSULE (FP) PO SCH ×5 (05:31→23:46)
[2021-12-25] MEDS: diazePAM 5 MG TABLET PO SCH ×4 (05:31→23:46)
[2021-12-25] MEDS: methaDONE HCL 40 MG DISPERSABLE TABLET PO SCH (09:06)
[2021-12-25] MEDS: LISINOPRIL 10 MG TABLET PO SCH (10:15)
[2021-12-25] MEDS: PRENATAL VITAMINS W/ FOLIC ACID TABLET (FP) PO SCH (10:15)
[2021-12-25] MEDS: NICOTINE 7 MG/24 HOURS TOPICAL PATCH TD SCH (10:17)
[2021-12-25] MEDS: NICOTINE 10 MG CARTRIDGE (INHALER) IH PRN (10:18)
[2021-12-25] MEDS: THIAMINE HCL 100 MG TABLET (FP) PO SCH (23:46)
[2021-12-25] MEDS: MELATONIN 5 MG TABLETS PO SCH (23:46)
[2021-12-26] MEDS: hydrOXYzine PAMOATE 25 MG CAPSULE (FP) PO SCH ×2 (05:23→10:26)
[2021-12-26] MEDS: methaDONE HCL 40 MG DISPERSABLE TABLET PO SCH (05:23)
[2021-12-26] MEDS ORDERED: diazePAM 5 MG TABLET PO SCH (06:00)
[2021-12-26 09:46] VITALS: BP 137/84; PULSE 73; TEMP 97.8
[2021-12-26] MEDS: NICOTINE 7 MG/24 HOURS TOPICAL PATCH TD SCH (10:26)
[2021-12-26] MEDS: PRENATAL VITAMINS W/ FOLIC ACID TABLET (FP) PO SCH (10:26)
[2021-12-26] MEDS: LISINOPRIL 10 MG TABLET PO SCH (10:26)
[2021-12-26] MEDS: NICOTINE 10 MG CARTRIDGE (INHALER) IH PRN (10:26)
[2021-12-27] MEDS ORDERED: diazePAM 5 MG TABLET PO SCH (06:00)
[2021-12-28] MEDS ORDERED: diazePAM 5 MG TABLET PO ONE (06:00)
== END 2021-12-26 12:45 | disposition left against medical advice (07) | DRG 894 ==
LOC: YASAS 11:00 → Y6N 13:32
PROVIDERS: ADMIT Allergy & Immunology; ATTEND Surgery
PROC: HZ2ZZZZ Detoxification Services for Substance Abuse Treatment (ICD-10-PCS; principal; 2021-12-24)
DX: F10.230 Alcohol dependence with withdrawal, uncomplicated (principal); F11.20 Opioid dependence, uncomplicated; F14.20 Cocaine dependence, uncomplicated; F19.282 Other psychoactive substance dependence with psychoactive substance-induced sleep disorder; F19.280 Other psychoactive substance dependence with psychoactive substance-induced anxiety disorder; F12.20 Cannabis dependence, uncomplicated; F16.10 Hallucinogen abuse, uncomplicated; F17.210 Nicotine dependence, cigarettes, uncomplicated; F25.9 Schizoaffective disorder, unspecified; F31.9 Bipolar disorder, unspecified; F19.24 Other psychoactive substance dependence with psychoactive substance-induced mood disorder; I10 Essential (primary) hypertension; J45.909 Unspecified asthma, uncomplicated; M54.59 Other low back pain; G89.29 Other chronic pain; E66.9 Obesity, unspecified; Z68.33 Body mass index [BMI] 33.0-33.9, adult; Z62.810 Personal history of physical and sexual abuse in childhood; Z56.0 Unemployment, unspecified
CPT/HCPCS: 36415; 80053; 85027; 86780; 87811; 93005; 93010; C9803-CS; U0003; U0005

== ENCOUNTER 2022-09-14 13:54 | Inpatient (IN) | payer OTHER ==
[2022-09-14 14:51] VITALS: BMI 31.0
[2022-09-14] MEDS ORDERED: BENZONATATE 200 MG CAPSULE PO PRN (17:18)
[2022-09-14] MEDS ORDERED: LOPERAMIDE HCL 2 MG CAPSULE PO PRN (17:18)
[2022-09-14] MEDS ORDERED: IBUPROFEN 600 MG TABLET (FP) PO PRN (17:18)
[2022-09-14] MEDS ORDERED: NICOTINE POLACRILEX 2 MG GUM BUC PRN (17:18)
[2022-09-14] MEDS ORDERED: guaiFENesin 600 MG TABLET.ER (FP) PO PRN (17:18)
[2022-09-14] MEDS ORDERED: NALOXONE HCL 0.4 MG/ML VIAL IM PRN (17:18)
[2022-09-14] MEDS ORDERED: ONDANSETRON *ODT* 4 MG TABLET SL PRN (17:18)
[2022-09-14] MEDS ORDERED: IBUPROFEN 400 MG TABLET (FP) PO PRN (17:18)
[2022-09-14] MEDS ORDERED: NALOXONE HCL (KLOXXADO) 8 MG SPRAY NS PRN (17:18)
[2022-09-14] MEDS ORDERED: BISMUTH SUBSALICYLATE 524 MG/30 ML PO PRN (17:18)
[2022-09-14] MEDS ORDERED: BENZOCAINE/MENTHOL (CHLORASEPTIC ) LOZENGE MM PRN (17:18)
[2022-09-14] MEDS ORDERED: MAG HYDROX/AL HYDROX/SIMETH 30 ML UNIT-DOSE CUP PO PRN (17:18)
[2022-09-14] MEDS ORDERED: MELATONIN 5 MG TABLETS PO PRN (17:18)
[2022-09-14] MEDS ORDERED: P-EPHED 60MG/TRIPROLIDI 2.5MG TABLET PO PRN (17:18)
[2022-09-14] MEDS ORDERED: MAGNESIUM HYDROX 2400MG/30ML ORAL SUSPENSION 30 ML CUP PO PRN (17:18)
[2022-09-14] MEDS ORDERED: ACETAMINOPHEN 325 MG TABLET (FP) PO PRN (17:18)
[2022-09-14] MEDS ORDERED: DICYCLOMINE HCL 10 MG CAPSULE PO PRN (17:18)
[2022-09-14] MEDS ORDERED: POLYETHYLENE GLYCOL (HEALTHYLAX) 3350 17 GM PACKET PO PRN (17:18)
[2022-09-14] MEDS: THIAMINE HCL 100 MG TABLET (FP) PO SCH (23:32)
[2022-09-15] MEDS: PRENATAL VITAMINS W/ FOLIC ACID TABLET (FP) PO SCH (09:59)
[2022-09-15] MEDS: methaDONE HCL 40 MG DISPERSABLE TABLET PO SCH (09:59)
[2022-09-15] MEDS ORDERED: chlordiazePOXIDE HCL 25 MG CAPSULE PO PRN (10:48)
[2022-09-15] MEDS: chlordiazePOXIDE HCL 25 MG CAPSULE PO SCH ×3 (11:37→23:39)
[2022-09-15 12:15] LABS: HEMATOCRIT 29.1 % (35.4-49); HEMOGLOBIN 9.2 GM/dL (11.7-16.9); MCH 22.1 pg (25.7-33.7); MCHC 31.7 g/dl (32.0-35.9); MEAN CELL VOLUME 69.6 fl (80-96); MEAN PLT VOLUME 8.7 fl (7.5-11.1); PLATELET COUNT 257 10^3/uL (134-434); RBC 4.19 M/mm3 (4.00-5.60); RDW 19.3 % (11.9-15.9); WHITE BLOOD COUNT 7.1 K/mm3 (4.0-10.0)
[2022-09-15 12:19] LABS: ALBUMIN 3.1 g/dl (3.4-5.0); CALCIUM 8.4 mg/dL (8.5-10.1)
[2022-09-15 12:20] LABS: BLOOD UREA NITROGEN 13.9 mg/dL (7-18)
[2022-09-15 12:22] LABS: CREATININE 0.9 mg/dL (0.55-1.3)
[2022-09-15 12:24] LABS: BILIRUBIN,TOTAL 0.6 mg/dL (0.2-1); TOT PROT 6.5 g/dl (6.4-8.2)
[2022-09-15 13:22] LABS: HIV INTERPRETATION NEGATIVE (NEGATIVE)
[2022-09-15] MEDS: THIAMINE HCL 100 MG TABLET (FP) PO SCH (23:10)
[2022-09-16] MEDS: chlordiazePOXIDE HCL 25 MG CAPSULE PO SCH ×4 (05:34→22:21)
[2022-09-16] MEDS: methaDONE HCL 40 MG DISPERSABLE TABLET PO SCH (05:35)
[2022-09-16] MEDS: PRENATAL VITAMINS W/ FOLIC ACID TABLET (FP) PO SCH (10:09)
[2022-09-16] MEDS ORDERED: cloNIDine HCL 0.1 MG TABLET PO ONE (13:15)
[2022-09-16] MEDS: THIAMINE HCL 100 MG TABLET (FP) PO SCH (22:21)
[2022-09-17] MEDS: methaDONE HCL 40 MG DISPERSABLE TABLET PO SCH (05:48)
[2022-09-17] MEDS: chlordiazePOXIDE HCL 25 MG CAPSULE PO SCH ×4 (05:49→23:55)
[2022-09-17] MEDS: PRENATAL VITAMINS W/ FOLIC ACID TABLET (FP) PO SCH (10:12)
[2022-09-17 11:20] LABS: HEMATOCRIT 29.4 % (35.4-49); HEMOGLOBIN 9.3 GM/dL (11.7-16.9); MCH 21.9 pg (25.7-33.7); MCHC 31.5 g/dl (32.0-35.9); MEAN CELL VOLUME 69.4 fl (80-96); MEAN PLT VOLUME 8.7 fl (7.5-11.1); PLATELET COUNT 277 10^3/uL (134-434); RBC 4.24 M/mm3 (4.00-5.60); RDW 19.4 % (11.9-15.9); RETICULOCYTES 0.76 % (0.5-1.5); WHITE BLOOD COUNT 6.6 K/mm3 (4.0-10.0)
[2022-09-17] MEDS: LISINOPRIL 20 MG TABLET PO SCH ×2 (11:44→23:50)
[2022-09-17] MEDS: FERROUS SO4 325 MG TABLET (FP) PO SCH (18:06)
[2022-09-17] MEDS ORDERED: NICOTINE 10 MG CARTRIDGE (INHALER) IH PRN (19:34)
[2022-09-17] MEDS: THIAMINE HCL 100 MG TABLET (FP) PO SCH (23:50)
[2022-09-18] MEDS ORDERED: chlordiazePOXIDE HCL 10 MG CAPSULE PO PRN
[2022-09-18] MEDS: methaDONE HCL 40 MG DISPERSABLE TABLET PO SCH (05:10)
[2022-09-18] MEDS: chlordiazePOXIDE HCL 10 MG CAPSULE PO SCH ×4 (05:11→23:39)
[2022-09-18] MEDS: FERROUS SO4 325 MG TABLET (FP) PO SCH ×3 (07:07→17:50)
[2022-09-18] MEDS: LISINOPRIL 20 MG TABLET PO SCH ×2 (10:15→23:38)
[2022-09-18] MEDS: PRENATAL VITAMINS W/ FOLIC ACID TABLET (FP) PO SCH (10:15)
[2022-09-18] MEDS: THIAMINE HCL 100 MG TABLET (FP) PO SCH (23:38)
[2022-09-19] MEDS: LISINOPRIL 20 MG TABLET PO SCH ×3 (00:03→22:19)
[2022-09-19] MEDS: SUVOREXANT 10 MG TABLET PO PRN ×2 (00:03→21:59)
[2022-09-19] MEDS: chlordiazePOXIDE HCL 10 MG CAPSULE PO SCH ×2 (05:20→17:39)
[2022-09-19] MEDS: methaDONE HCL 40 MG DISPERSABLE TABLET PO SCH (05:20)
[2022-09-19] MEDS: FERROUS SO4 325 MG TABLET (FP) PO SCH ×3 (06:59→17:38)
[2022-09-19] MEDS: PRENATAL VITAMINS W/ FOLIC ACID TABLET (FP) PO SCH (10:16)
[2022-09-19] MEDS: THIAMINE HCL 100 MG TABLET (FP) PO SCH (22:19)
[2022-09-20] MEDS ORDERED: chlordiazePOXIDE HCL 10 MG CAPSULE PO ONE (05:00)
[2022-09-20] MEDS: methaDONE HCL 40 MG DISPERSABLE TABLET PO SCH (05:13)
[2022-09-20 05:47] VITALS: TEMP 97.5
[2022-09-20] MEDS: FERROUS SO4 325 MG TABLET (FP) PO SCH (07:09)
[2022-09-20 09:17] VITALS: BP 147/86; PULSE 86; RESP 17
[2022-09-20] MEDS: LISINOPRIL 20 MG TABLET PO SCH (10:05)
[2022-09-20] MEDS: PRENATAL VITAMINS W/ FOLIC ACID TABLET (FP) PO SCH (10:05)
== END 2022-09-20 10:12 | disposition home or self-care (01) | DRG 897 ==
LOC: YASAS 13:54 → Y6N 18:33
PROVIDERS: ADMIT Allergy & Immunology; ATTEND Surgery
PROC: HZ2ZZZZ Detoxification Services for Substance Abuse Treatment (ICD-10-PCS; principal; 2022-09-14)
DX: F10.230 Alcohol dependence with withdrawal, uncomplicated (principal); F11.20 Opioid dependence, uncomplicated; F19.282 Other psychoactive substance dependence with psychoactive substance-induced sleep disorder; F19.280 Other psychoactive substance dependence with psychoactive substance-induced anxiety disorder; F14.10 Cocaine abuse, uncomplicated; F12.10 Cannabis abuse, uncomplicated; F15.10 Other stimulant abuse, uncomplicated; F17.210 Nicotine dependence, cigarettes, uncomplicated; F19.24 Other psychoactive substance dependence with psychoactive substance-induced mood disorder; D50.9 Iron deficiency anemia, unspecified; I10 Essential (primary) hypertension; J45.909 Unspecified asthma, uncomplicated; M54.50 Low back pain, unspecified; G89.29 Other chronic pain; E66.9 Obesity, unspecified; Z68.31 Body mass index [BMI] 31.0-31.9, adult; Z98.84 Bariatric surgery status
CPT/HCPCS: 36415; 80053; 82607; 82746; 83540; 83550; 85027; 85045; 86780; 87389; 93005; 93010; C9803-CS; U0003; U0005